=== PATIENT | female | born 1980 | race Caucasian/White ===

== ENCOUNTER 2017-04-28 17:49 | Emergency (ER) | payer OTHER ==
[2017-04-28] MEDS ORDERED: Sodium Chloride 0.9% 1000 ML 1,000 ML IV SCH (18:15)
[2017-04-28] MEDS ORDERED: Sodium Chloride 0.9% 1000 ML 1,000 ML ONE (18:17)
[2017-04-28] MEDS ORDERED: Hydromorphone 1 mg/ml Ampule IV ONE (18:31)
[2017-04-28] MEDS ORDERED: BENADRYL 50 MG/ML IV ONE (18:31)
[2017-04-28] MEDS ORDERED: Zofran 4 MG/2 ML VIAL IV ONE (18:31)
[2017-04-28 18:33] LABS: BASOPHIL % 0.6 % (0.0-0.4); Eosinophil % 2.1 % (0.00-5.0); Granulocytes % 62.8 % (36.0-66.0); Lymphocytes % 27.4 % (24.0-44.0); Mean Cell Volume 88.4 fl (78-100); Mean Corpuscular Hemoglobin 27.4 pg (26-32); Mean Platelet Volume 10.1 fl (6-9.5); Monocytes % 7.1 % (0.0-12.0); Platelet Count 344 K/mm3 (150-450); Red Blood Count 5.19 M/mm3 (4.1-5.4); Red Cell Distribution Width 16.2 % (11.5-14.0); White Blood Count 8.9 K/mm3 (4.0-10.5)
[2017-04-28] MEDS ORDERED: BENADRYL 50 MG/ML ONE (18:35)
[2017-04-28] MEDS ORDERED: Hydromorphone 1 mg/ml Ampule ONE (18:35)
--- NOTE | 2017-04-28 18:39 | ERPHSYRPT ---
- History of Present Illness Time Seen by Provider: 04/28/17 18:13 Historian: patient Patient Subjective Stated Complaint: Pt states "I am having abdominal pain in my upper abdomen, there are two bulges there. It started around 11 pm last night " Triage Nursing Assessment: Pt alert and oriented X 3, skin pwd. Pt holding her abdomen, pt has small swollen area noted to her RUQ. able to speak in full sentences. Physician History: CC: abd pain Hx; 36 y/o patient with RUQ abd pain. She has been rubbing the area and it has a bruise. No injury. No prior episode. She has had prior abd surgeries. No N/V. Normal urination. No fever or chills. Pain is severe. Timing/Duration: today Abdominal Pain Onset Location: RUQ Severity of Pain-Max: severe Severity of Pain-Current: severe Allergies/Adverse Reactions: promethazine [From Phenergan] Allergy (Mild, Verified 04/28/17 18:08) hives, tachycardia acetaminophen [From Lortab] Allergy (Verified 02/22/16 16:49) hydrocodone bitartrate [From Lortab] Allergy (Verified 02/22/16 16:49) Home Medications: Omeprazole Magnesium [Prilosec Otc] 20 mg PO DAILY 11/09/14 [History] Rizatriptan Benzoate [Maxalt] 5 mg PO Q12H PRN PRN 04/28/17 [History] Hx Tetanus, Diphtheria Vaccination/Date Given: Yes Hx Influenza Vaccination/Date Given: Yes Hx Pneumococcal Vaccination/Date Given: No Immunizations Up to Date: Yes - Review of Systems Constitutional: No Fever, No Chills Eyes: No Symptoms Ears, Nose, & Throat: No Symptoms Respiratory: No Cough, No Dyspnea Cardiac: No Chest Pain Abdominal/Gastrointestinal: Abdominal Pain, No Nausea, No Vomiting, No Diarrhea Genitourinary Symptoms: No Dysuria Skin: No Rash Neurological: No Headache All Other Systems: Reviewed and Negative - Past Medical History Pertinent Past Medical History: Yes Neurological History: Migraines ENT History: No Pertinent History Cardiac History: No Pertinent History Endocrine Medical History: No Pertinent History Musculoskeletal History: No Pertinent History GI Medical History: Other Psycho-Social History: Depression Female Reproductive Disorders: No Pertinent History Other Medical History: hiatal hernia - Past Surgical History Past Surgical History: Yes Neuro Surgical History: No Pertinent History Cardiac: No Pertinent History Respiratory: No Pertinent History Gastrointestinal: No Pertinent History Genitourinary: No Pertinent History Musculoskeletal: No Pertinent History Female Surgical History: Section, Tubal Ligation Other Surgical History: TONSILLECTOMY - Social History Smoking Status: Current every day smoker How long have you smoked: years Exposure to second hand smoke: Yes Drug Use: none Patient Lives Alone: No - Female History Hx Last Menstrual Period: ablasion Hx Now: No - Nursing Vital Signs Nursing Vital Signs: Initial Vital Signs Temperature 98.6 F 04/28/17 17:55 Pulse Rate 114 H 04/28/17 17:55 Respiratory Rate 18 04/28/17 17:55 Blood Pressure 121/75 04/28/17 17:55 O2 Sat by Pulse Oximetry 96 04/28/17 17:55 Pain Scale Pain Intensity 0 - Physical Exam General Appearance: alert, obese Eye Exam: PERRL/EOMI Ears, Nose, Throat Exam: moist mucous membranes Neck Exam: normal inspection, non-tender, supple Respiratory Exam: normal breath sounds Cardiovascular Exam: regular rate/rhythm Gastrointestinal/Abdomen Exam: soft, tenderness (extremely RUQ, mild bruising, feels like hematoma or fullness in SQ area. No redness or drng. ) Extremity Exam: normal inspection, normal range of motion Neurologic Exam: alert, oriented x 3, cooperative, sensation nml, No motor deficits Skin Exam: warm, dry, No rash SpO2 Interpretation: normal SpO2: 96 Oxygen Delivery: Room Air - Course Nursing assessment & vital signs reviewed: Yes Ordered Tests: Active Orders 24 hr Category Date Time Status IV Insertion STAT Care 04/28/17 18:13 Active NPO (ED) STAT Care 04/28/17 18:13 Active ABDOMEN AND PELVIS W CONTRAST [CT] Stat Exams 04/28/17 18:31 Taken CBC W DIFF Stat Lab 04/28/17 18:20 Completed CMP Stat Lab 04/28/17 18:20 Completed HCG QUALITATIVE,SERUM Stat Lab 04/28/17 18:20 Completed LIPASE Stat Lab 04/28/17 18:20 Completed PROTIME WITH INR Stat Lab 04/28/17 18:20 Completed PTT Stat Lab 04/28/17 18:20 Completed UA W/RFX UR CULTURE Stat Lab 04/28/17 18:13 Stop Req Medication Summary Generic Name Dose Route Start Last Admin Trade Name Freq PRN Reason Stop Dose Admin Sodium Chloride 1,000 mls @ 100 mls/hr 04/28/17 18:15 04/28/17 18:25 Sodium Chloride 0.9% 1000 Ml IV 05/28/17 18:14 100 mls/hr .Q10H CURTIS Administration Discontinued Medications Generic Name Dose Route Start Last Admin Trade Name Cristhian PRN Reason Stop Dose Admin Diphenhydramine HCl 25 mg 04/28/17 18:31 04/28/17 18:39 Benadryl 50 Mg/Ml IV 04/28/17 18:32 25 mg STAT ONE Administration Diphenhydramine HCl Confirm 04/28/17 18:35 Benadryl 50 Mg/Ml Administered 04/28/17 18:36 Dose 50 mg .ROUTE .STK-MED ONE Hydromorphone HCl 1 mg 04/28/17 18:31 04/28/17 18:40 Hydromorphone 1 Mg/Ml Ampule IV 04/28/17 18:32 1 mg STAT ONE Administration Hydromorphone HCl Confirm 04/28/17 18:35 Hydromorphone 1 Mg/Ml Ampule Administered 04/28/17 18:36 Dose 1 mg .ROUTE .STK-MED ONE Ondansetron HCl 4 mg 04/28/17 18:31 04/28/17 18:47 Zofran 4 Mg/2 Ml Vial IV 04/28/17 18:32 4 mg STAT ONE Administration Ondansetron HCl Confirm 04/28/17 18:47 Zofran 4 Mg/2 Ml Vial Administered 04/28/17 18:48 Dose 4 mg .ROUTE .STK-MED ONE Lab/Rad Data: Laboratory Result Diagrams 04/28/17 18:20 04/28/17 18:20 Laboratory Results 04/28/17 04/28/17 04/28/17 Range/Units 18:20 18:20 18:20 WBC (4.0-10.5) K/mm3 RBC (4.1-5.4) M/mm3 Hgb (12.0-16.0) gm/dl Hct (35-47) % MCV (78-100) fl MCH (26-32) pg MCHC (32-36) g/dl RDW (11.5-14.0) % Plt Count (150-450) K/mm3 MPV (6-9.5) fl Gran % (36.0-66.0) % Lymphocytes % (24.0-44.0) % Monocytes % (0.0-12.0) % Eosinophils % (0.00-5.0) % Basophils % (0.0-0.4) % Basophils # (0-0.4) INR 1.06 (0.8-3.0) APTT 35.0 (25.3-37.0) SECONDS Sodium 144 (136-145) mEq/L Potassium 3.9 (3.5-5.1) mEq/L Chloride 107 (98-107) mEq/L Carbon Dioxide 25.7 (21-32) mEq/L Anion Gap 14.7 (5-15) MEQ/L BUN 7 L (9-20) mg/dL Creatinine 0.93 (0.55-1.30) mg/dl Estimated GFR > 60 ML/MIN Glucose 98 (70-110) MG/DL Calcium 9.4 (8.5-10.1) mg/dL Total Bilirubin 0.30 (0.2-1.0) mg/dL AST 25 (15-37) U/L ALT 18 (12-78) U/L Alkaline Phosphatase 109 (46-116) U/L Serum Total Protein 8.0 (6.4-8.2) gm/dL Albumin 3.0 L (3.4-5.0) g/dL Lipase 75 (73-393) U/L Serum , Qual NEGATIVE (Negative) 04/28/17 Range/Units 18:20 WBC 8.9 (4.0-10.5) K/mm3 RBC 5.19 (4.1-5.4) M/mm3 Hgb 14.2 (12.0-16.0) gm/dl Hct 45.9 (35-47) % MCV 88.4 (78-100) fl MCH 27.4 (26-32) pg MCHC 30.9 L (32-36) g/dl RDW 16.2 H (11.5-14.0) % Plt Count 344 (150-450) K/mm3 MPV 10.1 H (6-9.5) fl Gran % 62.8 (36.0-66.0) % Lymphocytes % 27.4 (24.0-44.0) % Monocytes % 7.1 (0.0-12.0) % Eosinophils % 2.1 (0.00-5.0) % Basophils % 0.6 (0.0-0.4) % Basophils # 0.05 (0-0.4) INR (0.8-3.0) APTT (25.3-37.0) SECONDS Sodium (136-145) mEq/L Potassium (3.5-5.1) mEq/L Chloride (98-107) mEq/L Carbon Dioxide (21-32) mEq/L Anion Gap (5-15) MEQ/L BUN (9-20) mg/dL Creatinine (0.55-1.30) mg/dl Estimated GFR ML/MIN Glucose (70-110) MG/DL Calcium (8.5-10.1) mg/dL Total Bilirubin (0.2-1.0) mg/dL AST (15-37) U/L ALT (12-78) U/L Alkaline Phosphatase (46-116) U/L Serum Total Protein (6.4-8.2) gm/dL Albumin (3.4-5.0) g/dL Lipase (73-393) U/L Serum , Qual (Negative) - Progress Progress Note: 04/28/17 19:52 CT abd/pelvis: [email or web address] 7:36 PM 04/28/2017: Compared to 11/09/14. New wide mouth infraumbilical midline ventral hernia w/ omental fat protrusion & sigmoid diverticulosis. Stable small HH & fatty liver. Normal appy. Remaining abd/pel negative. Clinically she has hematoma in RUQ abdominal wall. She wants to go home. Will release with norco, no lifting, and she plans to follow up with Dr Jef Douglas the general surgeon she has seen in past for hernia. 04/28/17 19:57 She states she can not take lortab but can take hydrocodone/APAP and norco. Counseled pt/family regarding: lab results, diagnosis, need for follow-up, rad results - Departure Time of Disposition: 19:54 Departure Disposition: Home Clinical Impression: RUQ abdominal pain, right abdominal wall hematoma Condition: Stable Critical Care Time: No Referrals: ZOHREH BARCENAS [Primary Care Provider] - SHAWN DOUGLAS MD [ACTIVE STAFF] - Instructions: Abdominal Pain-Adult, Abdominal Hernia, Hematoma Additional Instructions: No driving tonite or while taking norco. Rx norco. No heavy lifting. Call in AM to see Dr Jef Douglas for recheck. Return for fever, vomiting, redness, drainage, or problems. Take xray CD to Dr douglas. Prescriptions: Hydrocodone/APAP 10/325 mg [[place] 10/325 MG Tablet] 1 tab PO Q6H PRN PRN # 14 tablet PRN Reason: Pain
[2017-04-28] MEDS ORDERED: Zofran 4 MG/2 ML VIAL ONE (18:47)
[2017-04-28 18:55] LABS: ALKALINE PHOSPHATASE 109 U/L (46-116); ANION GAP 14.7 MEQ/L (5-15); BLOOD UREA NITROGEN 7 mg/dL (9-20); CHLORIDE 107 mEq/L (98-107); Carbon Dioxide 25.7 mEq/L (21-32); Glucose 98 MG/DL (70-110); LIPASE 75 U/L (73-393); Potassium 3.9 mEq/L (3.5-5.1); SGOT/AST 25 U/L (15-37); SGPT/ALT 18 U/L (12-78); SODIUM 144 mEq/L (136-145)
[2017-04-28 19:39] LABS: INR 1.06 (0.8-3.0); PROTIME 11.8 SECONDS (9.95-12.35)
[2017-04-28 20:01] VITALS: BP 142/70; PULSE 88; O2SAT 98
--- NOTE | 2017-04-29 09:01 | XRAY ---
Indication: Right abdomen pain. Multiple contiguous axial images obtained through the abdomen and pelvis using 80 cc Isovue 370 contrast only. Comparison: CT renal stone study November 09, 2014. Lung bases are clear. Heart is not enlarged. Stable small hiatal hernia. Noncontrasted stomach and bowel loops appear nonobstructed. Normal appendix. There is now minimal sigmoid diverticulosis without diverticulitis. No free fluid/air. There is now a wide mouth infraumbilical midline ventral hernia with omental fat protruding. No herniated bowel loop. Stable fatty liver and 3.5 cm left adrenal adenoma. Remaining liver, gallbladder, pancreas, spleen, right adrenal gland, kidneys, ureters, bladder, uterus, and aorta appear unremarkable. No pathologic retroperitoneal lymphadenopathy. Osseous structures intact. In the lower anterior abdominal wall, there is now a multiple foci curvilinear densities with minimal stranding that favor scarring. No abnormal fluid or air collection. Impression: 1. New infraumbilical fatty ventral hernia and sigmoid diverticulosis. 2. Stable small hiatal hernia and left adrenal adenoma. 3. No acute intra-abdominal/pelvic abnormalities. CT DI 23.68
== END 2017-04-28 20:23 | disposition home or self-care (01) ==
LOC: ED 17:49
DX: R10.11 Right upper quadrant pain (principal); S30.1XXA Contusion of abdominal wall, initial encounter
CPT/HCPCS: 36000; 36415; 74177; 80053; 83690; 84703; 85025; 85610; 85730; 96360; 96374; 96375; 99285; J1170; J1200; J2405

== ENCOUNTER 2018-07-05 17:51 | Emergency (ER) | payer OTHER ==
--- NOTE | 2018-07-05 18:22 | ERPHSYRPT ---
- History of Present Illness Time Seen by Provider: 07/05/18 18:17 Source: patient, family (son) Exam Limitations: no limitations Physician History: The patient is a 37-year-old morbidly obese female with her son complaining of worsening right I redness, visual problems, discharge, and pain for the last 6 days. She denies any injury. She denies any foreign body. She will wake up in the morning and it will be crusted closed. Her vision is blurry. Light bothers her. Her eye is very itchy. She was seen at [facility] but they were not able to finish the appointment. 7. Her past medical history is significant for migraine headaches and GERD. Timing/Duration: day(s) (6), gradual onset, worse Location: right eye Severity: severe Apparent Injury: no Associated Symptoms: pain, burning, itching, sensitivity to light, redness, matting, eyelid swelling, blurred vision, No foreign body sensation Visual Assistive Devices: None Allergies/Adverse Reactions: promethazine [From Phenergan] Allergy (Mild, Verified 07/05/18 18:25) hives, tachycardia acetaminophen [From Lortab] Allergy (Verified 07/05/18 18:25) hydrocodone bitartrate [From Lortab] Allergy (Verified 07/05/18 18:25) Home Medications: Omeprazole Magnesium [Prilosec Otc] 20 mg PO DAILY 11/09/14 [History] Rizatriptan Benzoate [Maxalt] 5 mg PO Q12H PRN PRN 04/28/17 [History] Hx Tetanus, Diphtheria Vaccination/Date Given: Yes Hx Influenza Vaccination/Date Given: Yes Hx Pneumococcal Vaccination/Date Given: No - Review of Systems Constitutional: No Fever, No Chills Eyes: Discharge, Eye Pain, Eye Redness, Itchy, Photophobia, Vision Changes, No Foreign Body Sensation Ears, Nose, & Throat: No Symptoms Respiratory: No Cough, No Dyspnea Cardiac: No Chest Pain, No Edema, No Syncope Abdominal/Gastrointestinal: No Abdominal Pain, No Nausea, No Vomiting, No Diarrhea Genitourinary Symptoms: No Dysuria Musculoskeletal: No Back Pain, No Neck Pain Skin: No Rash Neurological: No Dizziness, No Focal Weakness, No Sensory Changes Psychological: No Symptoms Endocrine: No Symptoms Hematologic/Lymphatic: No Symptoms Immunological/Allergic: No Symptoms All Other Systems: Reviewed and Negative - Past Medical History Pertinent Past Medical History: Yes Neurological History: Migraines ENT History: No Pertinent History Cardiac History: No Pertinent History Endocrine Medical History: No Pertinent History Musculoskeletal History: No Pertinent History GI Medical History: Other Psycho-Social History: Depression Female Reproductive Disorders: No Pertinent History Other Medical History: hiatal hernia - Past Surgical History Past Surgical History: Yes Neuro Surgical History: No Pertinent History Cardiac: No Pertinent History Respiratory: No Pertinent History Gastrointestinal: No Pertinent History Genitourinary: No Pertinent History Musculoskeletal: No Pertinent History Female Surgical History: Section, Tubal Ligation Other Surgical History: TONSILLECTOMY - Social History Smoking Status: Current every day smoker How long have you smoked: years Exposure to second hand smoke: Yes Drug Use: none Patient Lives Alone: No - Nursing Vital Signs Nursing Vital Signs: Initial Vital Signs Temperature 98.7 F 07/05/18 17:52 Pulse Rate 80 07/05/18 17:52 Respiratory Rate 18 07/05/18 17:52 Blood Pressure 144/84 07/05/18 17:52 O2 Sat by Pulse Oximetry 100 07/05/18 17:52 Pain Scale Pain Intensity 5 - Physical Exam General Appearance: no apparent distress Eye Exam: right eye: PERRL, EOMI, conjunctival inflammation, erythema, exudate, eyelid inflammation, vision changes, other (fluorocein dye did not show any corneal abrasion.), left eye: normal inspection Ears, Nose, Throat Exam: normal ENT inspection Neck Exam: normal inspection Respiratory Exam: normal breath sounds Cardiovascular Exam: regular rate/rhythm Gastrointestinal Exam: soft Extremity Exam: normal inspection, tenderness Neurologic: alert, oriented x 3, cooperative Skin Exam: normal color SpO2 Interpretation: normal Oxygen Delivery: Room Air Ordered Tests: Active Orders 24 hr Category Date Time Status Visual Acuity STAT Care 07/05/18 18:23 Ordered CULTURE, EYE Stat Lab 07/05/18 18:24 Uncollected Medication Summary Discontinued Medications Generic Name Dose Route Start Last Admin Trade Name Freq PRN Reason Stop Dose Admin Ceftriaxone Sodium 1,000 mg 07/05/18 18:27 Rocephin 1000 Mg Inj IM 07/05/18 18:28 STAT ONE Ciprofloxacin 2.5 ml 07/05/18 18:23 07/05/18 18:33 Ciloxan Ophth OP 07/05/18 18:24 2.5 ml STAT ONE Administration Ciprofloxacin Confirm 07/05/18 18:28 Ciloxan Ophth Administered 07/05/18 18:29 Dose 2.5 ml .ROUTE .STK-MED ONE Eye Irrigation Solution 15 ml 07/05/18 18:29 07/05/18 18:31 Eye-Stream Solution OP 07/05/18 18:30 15 ml STAT ONE Administration Eye Irrigation Solution Confirm 07/05/18 18:30 Eye-Stream Solution Administered 07/05/18 18:31 Dose 30 ml .ROUTE .STK-MED ONE Fluorescein Sodium 1 mg 07/05/18 18:23 07/05/18 18:32 Ksklt-Y-Pyglx/Ful-Wiliam OP 07/05/18 18:24 1 mg STAT ONE Administration Fluorescein Sodium Confirm 07/05/18 18:28 Dahuf-O-Gspuh/Ful-Wiliam Administered 07/05/18 18:29 Dose 1 mg OP .STK-MED ONE Tetracaine HCl 4 ml 07/05/18 18:23 07/05/18 18:32 Tetracaine 0.5% Steri-Unit Emili OP 07/05/18 18:24 4 ml STAT STA Administration Tetracaine HCl Confirm 07/05/18 18:28 Tetracaine 0.5% Steri-Unit Emili Administered 07/05/18 18:29 Dose 4 ml OP .STK-MED ONE - Progress Progress: improved Progress Note: 07/05/18 18:40 cipro drops given to right eye. toradol 60 mg IM. Counseled pt/family regarding: diagnosis, need for follow-up - Departure Time of Disposition: 18:40 Departure Disposition: Home Clinical Impression: Bacterial conjunctivitis of right eye Condition: Stable Critical Care Time: No Referrals: ZOHREH BARCENAS [Primary Care Provider] - Additional Instructions: You have an acute bacterial infection in your right eye. You were given Rocephin 1 g by IM in the ER. You were also given ciprofloxacin eyedrops to the right eye in the ER. Continue with the ciprofloxacin drops 2 drops every 2 hours while awake for one week. Apply a 1/2 inch ribbon of Tobradex ointment to the right eye in the morning and in the evening for one week. Take Augmentin 875 to times a day for 10 days. If the condition worsens, immediately see an purchasing manager or return to the ER. Prescriptions: Amoxicillin/Potassium Clav [Augmentin 875-125 Tablet] 875 mg PO BID #20 tablet Tobramycin Sulf/Dexamethasone [Tobradex Eye Ointment] 3.5 gm OP BID #1 oint...g.
[2018-07-05] MEDS ORDERED: Ciloxan OPHTH OP ONE (18:23)
[2018-07-05] MEDS ORDERED: Fluor-I-Strip/Ful-Flo OP ONE ×2 (18:23→18:28)
[2018-07-05] MEDS ORDERED: TETRACAINE 0.5% STERI-UNIT SOL OP STA (18:23)
[2018-07-05 18:25] VITALS: BP 144/84; PULSE 80; O2SAT 100
[2018-07-05] MEDS ORDERED: Rocephin 1000 MG INJ IM ONE (18:27)
[2018-07-05] MEDS ORDERED: TETRACAINE 0.5% STERI-UNIT SOL OP ONE (18:28)
[2018-07-05] MEDS ORDERED: Ciloxan OPHTH ONE (18:28)
[2018-07-05] MEDS ORDERED: Eye-Stream Solution OP ONE (18:29)
[2018-07-05] MEDS ORDERED: Eye-Stream Solution ONE (18:30)
[2018-07-05] MEDS ORDERED: Rocephin 1000 MG INJ ONE (18:38)
== END 2018-07-05 18:50 | disposition home or self-care (01) ==
LOC: ED 17:51
DX: H10.9 Unspecified conjunctivitis (principal); Z79.899 Other long term (current) drug therapy
CPT/HCPCS: 96372; 99283; J0696; A9270-GY

== ENCOUNTER 2020-11-05 17:08 | Emergency (ER) | payer OTHER ==
[2020-11-05] MEDS ORDERED: MORPHINE SULFATE 4 MG INJ IM ONE (17:46)
[2020-11-05] MEDS ORDERED: MORPHINE SULFATE 4 MG INJ ONE (17:51)
--- NOTE | 2020-11-05 17:59 | ERPHSYRPT ---
- History of Present Illness Time Seen by Provider: 11/05/20 17:26 Source: patient Exam Limitations: no limitations Patient Subjective Stated Complaint: pt here for left lower leg pain for last month. Triage Nursing Assessment: she has scaly patches from left knee to calf and skin abnormallity color from left knee to foot, she states the scaly patched are painfule Physician History: 40 years old female with history of chronic left lower extremity swelling and rash for many years, has been seen by dermatology and vascular surgery outpatient, could not figure out the cause presented in the ER with gradually increasing pain for almost 4 weeks. Patient reports she has discoloration of left lower extremity from knee down for quite some time and recently noticed some blisters which dried up and now are extremely painful even touching clothes produce excruciating pain. Pain is sharp shooting nature and is more in the area of dried blisters. No fever or chills reported. Vascular surgery does not think it is related to vascular issues but more of her dermatological. She is scheduled to have appointment with another front sight attacher. Denies fever or chills. No history of blood clots. Timing/Duration: week(s) (4), worse Quality: painful Severity: moderate Location: extremities Possible Causes: no cause identified Associated Symptoms: denies symptoms Allergies/Adverse Reactions: promethazine [From Phenergan] Allergy (Mild, Verified 11/05/20 17:29) hives, tachycardia acetaminophen [From Lortab] Allergy (Verified 11/05/20 17:29) hydrocodone bitartrate [From Lortab] Allergy (Verified 11/05/20 17:29) Home Medications: Omeprazole Magnesium [Prilosec Otc] 20 mg PO DAILY 11/09/14 [History] Rizatriptan Benzoate [Maxalt] 5 mg PO Q12H PRN PRN 04/28/17 [History] Cetirizine HCl 1 ea DAILY 11/05/20 [History] Erenumab-Aooe [Aimovig Autoinjector] 1 ea DAILY 11/05/20 [History] Gabapentin [Neurontin] 1 ea TID 11/05/20 [History] Lisinopril 5 mg [Zestril 5 MG] 1 ea DAILY 11/05/20 [History] Metformin HCl 500 mg [Glucophage 500 MG] 1 ea BID 11/05/20 [History] Metoprolol Tartrate 25 mg [Lopressor 25MG Tab] 1 ea DAILY 11/05/20 [History] Rizatriptan Benzoate [Rizatriptan] 1 ea DAILY 11/05/20 [History] Vortioxetine Hydrobromide [Trintellix] 1 ea DAILY 11/05/20 [History] Hx Tetanus, Diphtheria Vaccination/Date Given: Yes Hx Influenza Vaccination/Date Given: Yes Hx Pneumococcal Vaccination/Date Given: No Immunizations Up to Date: Yes Travel Risk - International Travel Have you traveled outside of the country in past 3 weeks: No - Coronavirus Screening Are you exhibiting any of the following symptoms?: No Close contact with a COVID-19 positive Pt in past 14-21 Days: No - Review of Systems Constitutional: No Symptoms Eyes: No Symptoms Ears, Nose, & Throat: No Symptoms Respiratory: No Symptoms Cardiac: No Symptoms Abdominal/Gastrointestinal: No Symptoms Genitourinary Symptoms: No Symptoms Musculoskeletal: Myalgias Skin: Rash, Skin Lesions, Dryness Neurological: No Symptoms Psychological: No Symptoms Endocrine: No Symptoms Hematologic/Lymphatic: No Symptoms Immunological/Allergic: No Symptoms - Past Medical History Pertinent Past Medical History: Yes Neurological History: Migraines ENT History: No Pertinent History Cardiac History: No Pertinent History Endocrine Medical History: Diabetes Type II Musculoskeletal History: No Pertinent History GI Medical History: Hernia, Other Psycho-Social History: Depression Female Reproductive Disorders: No Pertinent History Other Medical History: hiatal hernia - Past Surgical History Past Surgical History: Yes Neuro Surgical History: No Pertinent History Cardiac: No Pertinent History Respiratory: No Pertinent History Gastrointestinal: No Pertinent History Genitourinary: No Pertinent History Musculoskeletal: Orthopedic Surgery Female Surgical History: Section, Tubal Ligation Other Surgical History: TONSILLECTOMY,left knee - Social History Smoking Status: Current every day smoker How long have you smoked: years Exposure to second hand smoke: Yes Drug Use: none Patient Lives Alone: No - Female History Hx Last Menstrual Period: 6 years ago Hx Now: No - Nursing Vital Signs Nursing Vital Signs: Initial Vital Signs Temperature 97.4 F 11/05/20 17:19 Pulse Rate 106 H 11/05/20 17:19 Respiratory Rate 22 11/05/20 17:19 Blood Pressure 137/93 11/05/20 17:19 O2 Sat by Pulse Oximetry 98 11/05/20 17:19 Pain Scale Pain Intensity 1 - Physical Exam General Appearance: no apparent distress Eye Exam: eyes nml inspection Ears, Nose, Throat Exam: normal ENT inspection, moist mucous membranes Neck Exam: normal inspection, non-tender, supple, full range of motion Respiratory Exam: normal breath sounds, lungs clear Cardiovascular Exam: regular rate/rhythm, normal heart sounds Gastrointestinal/Abdomen Exam: soft Back Exam: normal inspection, normal range of motion Extremity Exam: tenderness Neurologic Exam: alert, oriented x 3 (If), cooperative Skin Exam: rash, mottled, other (Left lower extremity from knee down area of scattered discoloration with some erythema and patchy area of blackening in the upper lateral leg. No increased temperature. Dryness. Hyperesthesia/excruciating pain with touching dried blistered area. Blistered area is darkened in color. Distal neuro) SpO2 Interpretation: normal SpO2: 98 O2 Delivery: Room Air Ordered Tests: Active Orders 24 hr Category Date Time Status BLOOD CULTURE Stat Lab 11/05/20 18:10 Received CBC W DIFF Stat Lab 11/05/20 18:00 Completed CMP Stat Lab 11/05/20 18:00 Completed HCG,QUALITATIVE URINE Stat Lab 11/05/20 17:49 Completed Lactic Acid Stat Lab 11/05/20 18:00 Completed Manual Differential NC Stat Lab 11/05/20 18:00 Completed UA W/RFX UR CULTURE Stat Lab 11/05/20 17:49 Completed Medication Summary Discontinued Medications Generic Name Dose Route Start Last Admin Trade Name Cristhian PRN Reason Stop Dose Admin Cephalexin HCl 500 mg 11/05/20 19:23 11/05/20 19:24 Keflex 500 Mg PO 11/05/20 19:24 500 mg STAT ONE Administration Cephalexin HCl Confirm 11/05/20 19:24 Keflex 500 Mg Administered 11/05/20 19:25 Dose 500 mg .ROUTE .STK-MED ONE Morphine Sulfate 4 mg 11/05/20 17:46 11/05/20 17:53 Morphine Sulfate 4 Mg Inj IM 11/05/20 17:47 4 mg STAT ONE Administration Morphine Sulfate Confirm 11/05/20 17:51 Morphine Sulfate 4 Mg Inj Administered 11/05/20 17:52 Dose 4 mg .ROUTE .STK-MED ONE Lab/Rad Data: Laboratory Result Diagrams 11/05/20 18:00 11/05/20 18:00 Laboratory Results 11/05/20 11/05/20 11/05/20 Range/Units 18:00 18:00 18:00 WBC 10.0 (4.0-10.5) K/mm3 RBC 4.84 (4.1-5.4) M/mm3 Hgb 13.2 (12.0-16.0) gm/dl Hct 44.0 (35-47) % MCV 90.9 (78-100) fl MCH 27.3 (26-32) pg MCHC 30.0 L (32-36) g/dl RDW 15.8 H (11.5-14.0) % Plt Count 392 (150-450) K/mm3 MPV 10.3 (7.5-11.0) fl Segmented Neutrophils 67 H (36.0-66.0) % Band Neutrophils 1 (0.0-2.0) % Lymphocytes (Manual) 20 L (24-44) % Monocytes (Manual) 6 (0.0-12.0) % Eosinophils (Manual) 4 H (0.00-3.0) % Basophils (Manual) 1 (0.0-1.0) % Atypical Lymphocytes 1 % Platelet Estimate NORMAL (NORMAL) RBC Morphology NORMAL Sodium 138 (137-145) mmol/L Potassium 3.6 (3.5-5.1) mmol/L Chloride 102 (98-107) mmol/L Carbon Dioxide 25 (22-30) mmol/L Anion Gap 15.3 H (5-15) MEQ/L BUN 9 (7-17) mg/dL Creatinine 0.92 (0.52-1.04) mg/dL Estimated GFR > 60.0 ML/MIN Glucose 166 H (74-106) mg/dL Lactic Acid 3.2 H (0.4-2.0) Calcium 9.1 (8.4-10.2) mg/dL Total Bilirubin 0.40 (0.2-1.3) mg/dL AST 25 (14-36) U/L ALT 22 (0-35) U/L Alkaline Phosphatase 118 (38-126) U/L Serum Total Protein 7.5 (6.3-8.2) g/dL Albumin 3.9 (3.5-5.0) g/dL Urine Color (YELLOW) Urine Appearance (CLEAR) Urine pH (5-6) Ur Specific [place] (1.005-1.025) Urine Protein (Negative) Urine Ketones (NEGATIVE) Urine Blood (0-5) Tejas/ul Urine Nitrite (NEGATIVE) Urine Bilirubin (NEGATIVE) Urine Urobilinogen (0-1) mg/dL Ur Leukocyte Esterase (NEGATIVE) Urine WBC (Auto) (0-5) /HPF Urine RBC (Auto) (0-2) /HPF U Epithel Cells (Auto) (FEW) /HPF Urine Bacteria (Auto) (NEGATIVE) /HPF Urine Mucus (Auto) (NEGATIVE) /HPF Urine Culture Reflexed (NO) Urine Glucose (NEGATIVE) mg/dL Urine HCG, Qual (Negative) 11/05/20 11/05/20 Range/Units 17:49 17:49 WBC (4.0-10.5) K/mm3 RBC (4.1-5.4) M/mm3 Hgb (12.0-16.0) gm/dl Hct (35-47) % MCV (78-100) fl MCH (26-32) pg MCHC (32-36) g/dl RDW (11.5-14.0) % Plt Count (150-450) K/mm3 MPV (7.5-11.0) fl Segmented Neutrophils (36.0-66.0) % Band Neutrophils (0.0-2.0) % Lymphocytes (Manual) (24-44) % Monocytes (Manual) (0.0-12.0) % Eosinophils (Manual) (0.00-3.0) % Basophils (Manual) (0.0-1.0) % Atypical Lymphocytes % Platelet Estimate (NORMAL) RBC Morphology Sodium (137-145) mmol/L Potassium (3.5-5.1) mmol/L Chloride (98-107) mmol/L Carbon Dioxide (22-30) mmol/L Anion Gap (5-15) MEQ/L BUN (7-17) mg/dL Creatinine (0.52-1.04) mg/dL Estimated GFR ML/MIN Glucose (74-106) mg/dL Lactic Acid (0.4-2.0) Calcium (8.4-10.2) mg/dL Total Bilirubin (0.2-1.3) mg/dL AST (14-36) U/L ALT (0-35) U/L Alkaline Phosphatase (38-126) U/L Serum Total Protein (6.3-8.2) g/dL Albumin (3.5-5.0) g/dL Urine Color YELLOW (YELLOW) Urine Appearance SLIGHTLY CLOUDY (CLEAR) Urine pH 6.0 (5-6) Ur Specific [place] 1.021 (1.005-1.025) Urine Protein NEGATIVE (Negative) Urine Ketones NEGATIVE (NEGATIVE) Urine Blood NEGATIVE (0-5) Tejas/ul Urine Nitrite NEGATIVE (NEGATIVE) Urine Bilirubin NEGATIVE (NEGATIVE) Urine Urobilinogen 2 (0-1) mg/dL Ur Leukocyte Esterase NEGATIVE (NEGATIVE) Urine WBC (Auto) 0-2 (0-5) /HPF Urine RBC (Auto) 6-10 (0-2) /HPF U Epithel Cells (Auto) RARE (FEW) /HPF Urine Bacteria (Auto) NONE (NEGATIVE) /HPF Urine Mucus (Auto) SLIGHT (NEGATIVE) /HPF Urine Culture Reflexed NO (NO) Urine Glucose NEGATIVE (NEGATIVE) mg/dL Urine HCG, Qual NEGATIVE (Negative) - Progress Progress: improved, pain not gone completely, re-examined Progress Note: 11/05/20 19:23 40 years old is evaluated for left leg chronic rash with increasing pain and hyperesthesia. Her pain seems to be neuropathic. She is given pain medication, on reevaluation feeling better. No tenderness in the calf, do not think she has DVT. Pain is similar to previous. She has normal white count, grossly unremarkable chemistries. Her lactate is 3.2. I have given her Keflex prophylactically to prevent any kind of infection as she had a recent blisters. I really think patient needs to follow-up with dermatology for further evaluation and may need biopsy to find out exact diagnosis. I will give her pain medications for few days to go home. Discussed signs symptoms of worsening needing return to ER which she seems understanding. Counseled pt/family regarding: lab results, diagnosis, need for follow-up - Departure Departure Disposition: Home Clinical Impression: Dermatitis Condition: Stable Critical Care Time: No Referrals: ZOHREH BARCENAS [Primary Care Provider] - (1-2 days for reevaluation) Instructions: Dermatitis Additional Instructions: Radha Meyer DO Dermatology [facility] [address], [place] [address] call for appointment. Take pain medications as needed. Return to ER for worsening pain swelling redness or if develop fever chills etc. Prescriptions: Cephalexin Mh 500 mg [Keflex 500 mg] 500 mg PO TID #21 capsule Tramadol HCl 50 mg [Ultram 50 mg] 50 mg PO TID PRN #12 tablet PRN Reason: Pain
[2020-11-05 18:40] LABS: ALBUMIN 3.9 g/dL (3.5-5.0); ALKALINE PHOSPHATASE 118 U/L (38-126); ANION GAP 15.3 MEQ/L (5-15); BLOOD UREA NITROGEN 9 mg/dL (7-17); CHLORIDE 102 mmol/L (98-107); Calcium 9.1 mg/dL (8.4-10.2); Carbon Dioxide 25 mmol/L (22-30); Creatinine 1 0.92 mg/dL (0.52-1.04); EST GLOMERULAR FILTRATION RATE > 60.0 ML/MIN; Glucose 166 mg/dL (74-106); Potassium 3.6 mmol/L (3.5-5.1); SGOT/AST 25 U/L (14-36); SGPT/ALT 22 U/L (0-35); SODIUM 138 mmol/L (137-145); Total Protein 7.5 g/dL (6.3-8.2)
[2020-11-05 18:41] LABS: Appearance SLIGHTLY CLOUDY (CLEAR); Bilirubin NEGATIVE (NEGATIVE); Blood NEGATIVE Ery/ul (0-5); Epithelial Cells RARE /HPF (FEW); Glucose NEGATIVE (NEGATIVE); Ketones NEGATIVE (NEGATIVE); Leukocyte Esterase NEGATIVE (NEGATIVE); Mucus SLIGHT /HPF (NEGATIVE); Nitrite NEGATIVE (NEGATIVE); Protein,Urine Dip NEGATIVE (Negative); Specific Gravity 1.021 (1.005-1.025); Urobilinogen 2 mg/dL (0-1); WBC 0-2 /HPF (0-5)
[2020-11-05 18:43] LABS: Hemoglobin 13.2 gm/dl (12.0-16.0); Mean Cell Volume 90.9 fl (78-100); Mean Corpuscular Hemoglobin 27.3 pg (26-32); Mean Platelet Volume 10.3 fl (7.5-11.0); Platelet Count 392 K/mm3 (150-450); Red Blood Count 4.84 M/mm3 (4.1-5.4); Red Cell Distribution Width 15.8 % (11.5-14.0)
[2020-11-05 19:09] VITALS: BP 109/62; PULSE 93
[2020-11-05] MEDS ORDERED: KEFLEX 500 MG PO ONE (19:23)
[2020-11-05] MEDS ORDERED: KEFLEX 500 MG ONE (19:24)
[2020-11-05 19:31] VITALS: O2SAT 98
[2020-11-05 19:37] LABS: ATYPICAL LYMPHS 1 %; BAND 1 % (0.0-2.0); Basophil 1 % (0.0-1.0); Eosinophil 4 % (0.00-3.0); Lymphocytes 20 % (24-44); Monocyte 6 % (0.0-12.0); Neutrophils 67 % (36.0-66.0); Platelet Estimate NORMAL (NORMAL); Total Cells Counted 100
== END 2020-11-05 19:45 | disposition home or self-care (01) ==
LOC: ED 17:08
DX: L30.9 Dermatitis, unspecified (principal)
CPT/HCPCS: 36415; 80053; 81001; 83605; 84703; 85025; 87040; 96372; 99284; J2270; A9270-GY

== ENCOUNTER 2021-10-21 06:57 | Day surgery (SDC) | payer OTHER ==
[2021-10-21] MEDS ORDERED: LIDOCAINE HCL 2% 100 MG/5 ML IJ ONE (08:25)
[2021-10-21] MEDS ORDERED: Decadron 4 MG INJ IV ONE (08:25)
[2021-10-21] MEDS ORDERED: DIPRIVAN 200 MG/20 ML IV ONE ×2 (08:46→08:59)
[2021-10-21] MEDS ORDERED: Lactated Ringers 1,000 ML IV ONE (08:59)
--- NOTE | 2021-10-21 10:09 | XRAY ---
Indication: Right C2-C4 MBB. Intraoperative fluoroscopy provided for 39 seconds. 2 digital spot images submitted for interpretation demonstrates posterior needle tips projecting over the expected right C2-C4 nerve roots. Correlate with intraoperative findings/report.
--- NOTE | 2021-10-21 10:20 | XRAY ---
39 seconds fluoroscopy time in surgery for right C2-C4 MBB.
== END 2021-10-21 09:20 | disposition home or self-care (01) ==
LOC: SDC-PAIN 06:57
PROVIDERS: ATTEND Psychiatry & Neurology Pain Medicine
DX: M47.812 Spondylosis without myelopathy or radiculopathy, cervical region (principal); I10 Essential (primary) hypertension; E11.9 Type 2 diabetes mellitus without complications; Z79.899 Other long term (current) drug therapy
CPT/HCPCS: 64490; 64491; 72040; 77002; 82947; 84703; J1100; J2704

== ENCOUNTER 2021-11-11 08:34 | Day surgery (SDC) | payer OTHER ==
[2021-11-11] MEDS ORDERED: BUPIVACAINE 0.5% VIAL IJ ONE (08:35)
[2021-11-11] MEDS ORDERED: Depo-Medrol 40 MG/ML IM ONE (08:35)
[2021-11-11] MEDS ORDERED: Lactated Ringers 1,000 ML IV ONE (10:20)
[2021-11-11] MEDS ORDERED: DIPRIVAN 200 MG/20 ML IV ONE (10:27)
--- NOTE | 2021-11-11 12:10 | XRAY ---
Indication: Right C2-C4 MBB. Intraoperative fluoroscopy provided for 34 seconds. 2 digital spot image submitted for interpretation demonstrates posterior needle tips projecting over the expected right C2-C4 nerve roots. Correlate with intraoperative findings/report.
--- NOTE | 2021-11-11 12:12 | XRAY ---
34 seconds fluoroscopy time in surgery for right C2-C4 MBB.
== END 2021-11-11 10:58 | disposition home or self-care (01) ==
LOC: SDC-PAIN 08:34
PROVIDERS: ATTEND Psychiatry & Neurology Pain Medicine
DX: M47.812 Spondylosis without myelopathy or radiculopathy, cervical region (principal); E11.9 Type 2 diabetes mellitus without complications; I10 Essential (primary) hypertension; Z79.899 Other long term (current) drug therapy
CPT/HCPCS: 64490; 64491; 72040; 77002; 82947; 84703; J1030; J2704

== ENCOUNTER 2021-12-23 06:56 | Day surgery (SDC) | payer OTHER ==
[2021-12-23] MEDS ORDERED: DIPRIVAN 200 MG/20 ML IV ONE (08:33)
[2021-12-23] MEDS ORDERED: Xylocaine-Mpf 2% 5 Ml Vial ONE (08:33)
[2021-12-23] MEDS ORDERED: Lactated Ringers 1,000 ML IV ONE (08:54)
--- NOTE | 2021-12-23 10:34 | XRAY ---
12 seconds fluoroscopy time in surgery although procedure was cancelled.
== END 2021-12-23 09:08 | disposition home or self-care (01) ==
LOC: SDC-PAIN 06:56
PROVIDERS: ATTEND Psychiatry & Neurology Pain Medicine
DX: M47.812 Spondylosis without myelopathy or radiculopathy, cervical region (principal); E11.9 Type 2 diabetes mellitus without complications; I10 Essential (primary) hypertension; Z79.899 Other long term (current) drug therapy
CPT/HCPCS: 01939; 64633; 77002; 82947; 84703; J2704

== ENCOUNTER 2021-12-31 08:57 | Day surgery (SDC) | payer OTHER ==
[2021-12-31] MEDS ORDERED: Xylocaine 1% Vial 30 ML PF IJ ONE (08:58)
[2021-12-31] MEDS ORDERED: Marcaine Mpf 0.5% Vial 30 Ml IJ ONE (08:58)
[2021-12-31] MEDS ORDERED: Decadron 4 MG INJ IV ONE (08:58)
[2021-12-31] MEDS ORDERED: Lactated Ringers 1,000 ML IV ONE (10:24)
--- NOTE | 2021-12-31 12:33 | XRAY ---
Indication: Right C2-C4 RFA. Intraoperative fluoroscopy provided for 1 minute. 2 digital spot image submitted for interpretation demonstrates posterior needle tips projecting over the expected right C2-C4 nerve roots. Correlate with intraoperative findings/report.
--- NOTE | 2021-12-31 14:49 | XRAY ---
1 minute of fluoroscopy was used in surgery for a right C2-C4 RFA.
== END 2021-12-31 11:23 | disposition home or self-care (01) ==
LOC: SDC-PAIN 08:57
PROVIDERS: ATTEND Psychiatry & Neurology Pain Medicine
DX: M47.812 Spondylosis without myelopathy or radiculopathy, cervical region (principal); E11.9 Type 2 diabetes mellitus without complications; Z79.899 Other long term (current) drug therapy
CPT/HCPCS: 64633; 64634; 72040; 77002; 82947; 84703; J1100; J2001

== ENCOUNTER 2022-05-26 07:01 | Day surgery (SDC) | payer OTHER ==
[2022-05-26] MEDS ORDERED: LIDOCAINE HCL 1% 50 MG/5 ML VL PF IJ ONE (07:02)
[2022-05-26] MEDS ORDERED: Depo-Medrol 40 MG/ML IM ONE (07:02)
[2022-05-26] MEDS ORDERED: BUPIVACAINE 0.5% VIAL IJ ONE (07:02)
--- NOTE | 2022-05-26 10:01 | XRAY ---
Indication: Right knee injection. Intraoperative fluoroscopy was provided for 17 seconds. Single digital spot images submitted for interpretation demonstrates needle tip projecting over the right femur intercondylar notch. Small amount of contrast injected for needle tip placement. Correlate with intraoperative findings/report.
--- NOTE | 2022-05-26 10:01 | XRAY ---
Indication: Left knee injection. Intraoperative fluoroscopy was provided for 9 seconds. Single digital spot images submitted for interpretation demonstrates needle tip projecting over the left femur intercondylar notch. Small amount of contrast injected for needle tip placement. Correlate with intraoperative findings/report.
--- NOTE | 2022-05-26 10:03 | XRAY ---
17 seconds of fluoroscopy was used in surgery for a right intra-articular knee injection.
--- NOTE | 2022-05-26 10:03 | XRAY ---
9 seconds of fluoroscopy was used in surgery for a left intra-articular knee injection.
== END 2022-05-26 09:00 | disposition home or self-care (01) ==
LOC: SDC-PAIN 07:01
PROVIDERS: ATTEND Psychiatry & Neurology Pain Medicine
DX: M17.0 Bilateral primary osteoarthritis of knee (principal); E11.9 Type 2 diabetes mellitus without complications; Z79.899 Other long term (current) drug therapy
CPT/HCPCS: 20610; 73560; 77002; 81025; 82947; J1030; J2001; Q9966

== ENCOUNTER 2022-07-21 15:23 | Day surgery (SDC) | payer MEDICARE ==
[2022-07-21] MEDS ORDERED: SYNVISC 16 MG/2 ML SYRINGE IU ONE (15:24)
[2022-07-21] MEDS ORDERED: XYLOCAINE-MPF 1% 5ML SDV IJ ONE (15:24)
--- NOTE | 2022-07-21 20:28 | XRAY ---
Indication: Left knee injection. Intraoperative fluoroscopy provided for 9 seconds. Single digital spot image submitted for interpretation demonstrates needle tip projecting over the left femur intercondylar notch. Small amount of contrast injected for needle tip placement. Correlate with intraoperative findings/report.
--- NOTE | 2022-07-21 20:28 | XRAY ---
Indication: Right knee injection. Intraoperative fluoroscopy provided for 15 seconds. Single digital spot image submitted for interpretation demonstrates needle tip projecting over the right femur intercondylar notch. Small amount of contrast injected for needle tip placement. Correlate with intraoperative findings/report.
--- NOTE | 2022-07-22 09:13 | XRAY ---
15 seconds of fluoroscopy was used in surgery for a right intra-articular knee injection.
--- NOTE | 2022-07-22 09:13 | XRAY ---
9 seconds of fluoroscopy was used in surgery for a left intra-articular knee injection.
== END 2022-07-21 18:10 | disposition home or self-care (01) ==
LOC: SDC-PAIN 15:23
PROVIDERS: ATTEND Psychiatry & Neurology Pain Medicine
DX: M17.0 Bilateral primary osteoarthritis of knee (principal); E11.9 Type 2 diabetes mellitus without complications; Z79.899 Other long term (current) drug therapy
CPT/HCPCS: 20610; 73560; 77002; 81025; 82947; J7325; Q9966

== ENCOUNTER 2022-07-28 15:20 | Day surgery (SDC) | payer MEDICARE ==
[2022-07-28] MEDS ORDERED: LIDOCAINE HCL 1% 50 MG/5 ML VL PF IJ ONE (15:21)
--- NOTE | 2022-07-28 19:55 | XRAY ---
Indication: Left knee injection. Intraoperative fluoroscopy provided for 10 seconds. Single digital spot image submitted for interpretation demonstrates needle tip over the left femur intercondylar notch. Small amount of contrast injected for needle tip placement. Correlate with intraoperative findings/report.
--- NOTE | 2022-07-28 19:55 | XRAY ---
Indication: Right knee injection. Intraoperative fluoroscopy provided for 10 seconds. Single digital spot image submitted for interpretation demonstrates needle tip over the right femur intercondylar notch. Small amount of contrast injected for needle tip placement. Correlate with intraoperative findings/report.
--- NOTE | 2022-07-29 09:05 | XRAY ---
10 seconds fluoroscopy time in surgery for injection of the intra-articular joint space of the left knee.
--- NOTE | 2022-07-29 09:05 | XRAY ---
10 seconds fluoroscopy time in surgery for injection of the intra-articular joint space of the right knee.
== END 2022-07-28 17:50 | disposition home or self-care (01) ==
LOC: SDC-PAIN 15:20
PROVIDERS: ATTEND Psychiatry & Neurology Pain Medicine
DX: M17.0 Bilateral primary osteoarthritis of knee (principal); E11.9 Type 2 diabetes mellitus without complications; Z79.899 Other long term (current) drug therapy
CPT/HCPCS: 20610; 73560; 77002; 81025; 82947; J2001

== ENCOUNTER 2022-08-04 15:20 | Day surgery (SDC) | payer MEDICARE ==
[2022-08-04] MEDS ORDERED: LIDOCAINE HCL 1% 50 MG/5 ML VL PF IJ ONE (15:21)
--- NOTE | 2022-08-04 19:38 | XRAY ---
Indication: Right knee injection. Intraoperative fluoroscopy provided for 23 second. Single digital spot image submitted for interpretation demonstrates needle tip projecting over the right femur intercondylar notch. Small amount of contrast injected for needle tip placement. Correlate with intraoperative findings/report.
--- NOTE | 2022-08-04 19:38 | XRAY ---
Indication: Left knee injection. Intraoperative fluoroscopy provided for 6 second. Single digital spot image submitted for interpretation demonstrates needle tip projecting over the left femur intercondylar notch. Small amount of contrast injected for needle tip placement. Correlate with intraoperative findings/report.
--- NOTE | 2022-08-05 09:18 | XRAY ---
6 seconds of fluoroscopy was used in surgery for a left intra-articular knee injection.
--- NOTE | 2022-08-05 09:50 | XRAY ---
23 seconds of fluoroscopy was used in surgery for a right intra-articular knee injection.
== END 2022-08-04 18:05 | disposition home or self-care (01) ==
LOC: SDC-PAIN 15:20
PROVIDERS: ATTEND Psychiatry & Neurology Pain Medicine
DX: M17.0 Bilateral primary osteoarthritis of knee (principal); E11.9 Type 2 diabetes mellitus without complications; Z79.899 Other long term (current) drug therapy
CPT/HCPCS: 20610; 73560; 77002; 81025; 82947; J2001; Q9966

== ENCOUNTER 2023-03-09 06:57 | Day surgery (SDC) | payer MEDICARE ==
[2023-03-09] MEDS ORDERED: LIDOCAINE HCL 2% 100 MG/5 ML IJ ONE (06:58)
[2023-03-09] MEDS ORDERED: Decadron 4 MG INJ IV ONE (06:58)
[2023-03-09 07:15] LABS: HCG URINE TEST NEGATIVE (NEGATIVE)
[2023-03-09] MEDS ORDERED: DIPRIVAN 200 MG/20 ML IV ONE ×3 (07:48→08:25)
--- NOTE | 2023-03-09 10:31 | XRAY ---
Indication: Left C2-C4 MBB. Intraoperative fluoroscopy provided for 26 seconds. 2 digital spot images submitted for interpretation demonstrates posterior needle tips projecting over the expected left C2-C4 nerve roots. Correlate with intraoperative findings/report.
--- NOTE | 2023-03-09 11:33 | XRAY ---
26 seconds of fluoroscopy was used in surgery for a left C2-C4 MBB.
[2023-03-09] MEDS ORDERED: Lactated Ringers 1,000 ML IV ONE (12:40)
== END 2023-03-09 08:50 | disposition home or self-care (01) ==
LOC: SDC-PAIN 06:57
PROVIDERS: ATTEND Psychiatry & Neurology Pain Medicine
DX: M47.812 Spondylosis without myelopathy or radiculopathy, cervical region (principal); E11.9 Type 2 diabetes mellitus without complications; Z79.899 Other long term (current) drug therapy
CPT/HCPCS: 64490; 64491; 72040; 77002; 81025; 82947; J1100; J2704